=== PATIENT | female | born 1975 | race African-American/Black ===

== ENCOUNTER 2018-03-03 08:49 | Emergency (ER) | payer OTHER ==
[~2018-03-03] VITALS: Ht 165.1 cm; Wt 133.0 kg
[2018-03-03 08:52] VITALS: BP 180/83; PULSE 82; RESP 19; Ht 165.1 cm; Wt 133.0 kg
[2018-03-03] MEDS ORDERED: KETOROLAC 30 MG INJ IM STA (10:15)
[2018-03-03] MEDS ORDERED: DIAZEPAM 5 MG TAB PO ONE (10:30)
--- NOTE | 2018-03-03 10:32 | ERD ---
ER Documentation Chief Complaint Chief Complaint right hip amd back pain x 5 days HPI 42-year-old female presents emerged department complaining of lower back pain right hip pain that radiates down her back for the past 5 days. Patient rates the pain moderate in severity. She states that she had no injury and this never happened before. Denies saddle anesthesia, bladder or bowel incontinence. States that she is tried ibuprofen and Tylenol without any relief. Ibuprofen his last dose was last night ROS All systems reviewed and are negative except as per history of present illness. PMhx/Soc Medical and Surgical Hx: pt denies Surgical Hx Hx Cardiac Disorders: Yes (HTN) Hx Alcohol Use: No Hx Substance Use: No (quit 3 weeks ago marijuana) Hx Tobacco Use: No Smoking Status: Never smoker Physical Exam Vitals Vital Signs Date Temp Pulse Resp B/P (MAP) Pulse Ox O2 O2 Flow FiO2 Time Delivery Rate 03/03/18 98.7 82 19 180/83 100 08:52 (115) Physical Exam Const: No acute distress Head: Atraumatic Eyes: Normal Conjunctiva ENT: Normal External Ears, Nose and Mouth. Neck: Full range of motion. No meningismus. Resp: Clear to auscultation bilaterally Cardio: Regular rate and rhythm, no murmurs Abd: Soft, non tender, non distended. Normal bowel sounds Skin: No petechiae or rashes Back: Mild tenderness palpation in the sacral spine, tender palpation in the right lumbar region positive straight leg raise on the right Ext: No cyanosis, or edema Neur: Awake and alert Psych: Normal Mood and Affect Results 24 hrs Current Medications Medications Dose Sig/Edward Start Time Status Last (Trade) Ordered Route PRN Stop Time Admin Dose Reason Admin Diazepam 5 mg ONCE ONCE 03/03/18 (Valium) PO 10:30 03/03/18 10:31 Ketorolac 30 mg ONCE STAT 03/03/18 DC Tromethamine IM 10:15 (Toradol) 03/03/18 10:17 Procedures/MDM 42-year-old female presents with back pain that radiates down her leg for the past 5 days likely to be strain associated with sciatica. No evidence of any fracture dislocation. No evidence of cauda equina. Patient was given Toradol and Valium in the ED with some improvement. She is instructed to follow-up with her primary care physician, she states that she has an appointment next discussed to get a referral for physical therapy and possible MRI. Patient was given prescription for naproxen and Valium. I have given her return precautions she stable to be discharged home with return Departure Diagnosis: Primary Impression: Back pain Condition: Stable AILYN SANTOS PA-C Mar 03, 2018 10:32
[2018-03-03] MEDS ORDERED: NAPR-985 PO (11:13)
[2018-03-03] MEDS ORDERED: DIAZ5TAB PO (11:13)
== END 2018-03-03 11:28 | disposition home or self-care (01) ==
LOC: FTE 08:49
DX: M54.5 Low back pain (principal); I10 Essential (primary) hypertension
CPT/HCPCS: 72100; 81025; 96372; J1885; Z7502; Z7610

== ENCOUNTER 2018-03-10 15:30 | Emergency (ER) | payer OTHER ==
[~2018-03-10] VITALS: Ht 165.1 cm; Wt 136.8 kg
[~2018-03-10 15:30] MED LIST: DIAZ5TAB PO; NAPR-985 PO
[2018-03-10 15:35] VITALS: BP 172/104; PULSE 97; RESP 18; Ht 165.1 cm; Wt 136.8 kg
[2018-03-10] MEDS ORDERED: KETOROLAC 30 MG INJ IM STA (16:02)
--- NOTE | 2018-03-10 16:06 | ERD ---
ER Documentation Chief Complaint Chief Complaint back pain x 3 weeks HPI Patient is a 42-year-old female who is here with low back pain that radiates to her right hip. No bowel or bladder incontinence. No saddle anesthesia. No fever. No vomiting. No flank pain. No dysuria hematuria frequency. She is ambulatory. No trauma. ROS All systems reviewed and are negative except as per history of present illness. Medications Home Meds Active Scripts Hydrocodone/Acetaminophen ([place] 5-325 Tablet) 1 Each Tablet, 1 TAB PO Q6H PRN for PAIN, #15 TAB Prov:SRINIAVS FARMER PA-C 03/10/18 Cyclobenzaprine Hcl* (Cyclobenzaprine Hcl*) 10 Mg Tablet, 10 MG PO TID, #20 TAB Prov:SRINIVAS FARMER PA-C 03/10/18 Diazepam* (Valium*) 5 Mg Tablet, 2.5 MG PO Q8 PRN for MUSCLE SPASMS, #9 TAB Prov:AILYN SANTOS PA-C 03/03/18 Naproxen* (Naprosyn*) 500 Mg Tablet, 500 MG PO BID PRN for PAIN AND/OR INFLAMMATION, #30 TAB Prov:AILYN SANTOS PA-C 03/03/18 Allergies Allergies: Coded Allergies: No Known Allergy (Unverified , 03/10/18) PMhx/Soc Hx Cardiac Disorders: Yes (HTN) Hx Alcohol Use: No Hx Substance Use: No (quit 3 weeks ago marijuana) Hx Tobacco Use: No FmHx Family History: No diabetes Physical Exam Vitals Vital Signs Date Temp Pulse Resp B/P (MAP) Pulse Ox O2 O2 Flow FiO2 Time Delivery Rate 03/10/18 98.5 97 18 172/104 98 15:35 (126) Physical Exam Const: No acute distress Head: Atraumatic Eyes: Normal Conjunctiva ENT: Normal External Ears, Nose and Mouth. Neck: Full range of motion. No meningismus. Resp: Clear to auscultation bilaterally Cardio: Regular rate and rhythm, no murmurs Abd: Soft, non tender, non distended. Normal bowel sounds Back Exam: Compartments: Soft Motor: Normal flexion and extension of bilateral hip/knee/ankle/foot Sensation: Intact to light touch throughout Bones: No midline TTP Results 24 hrs Laboratory Tests Test 03/10/18 16:20 POC Beta HCG, Qualitative NEGATIVE Current Medications Medications Dose Sig/Edward Start Time Status Last (Trade) Ordered Route PRN Stop Time Admin Dose Reason Admin Ketorolac 30 mg ONCE STAT 03/10/18 DC 03/10/18 Tromethamine IM 16:02 16:26 (Toradol) 03/10/18 16:03 1 tab ONCE ONCE 03/10/18 03/10/18 Acetaminophen PO 16:30 16:26 / 03/10/18 16:31 Hydrocodone Bitart ([place] ()) Procedures/MDM Patient has back pain. The differential diagnosis includes but is not limited to muscle strain, ligament strain, contusion, arthritis, discogenetic disease, non-musculoskeletal, cauda equina syndrome, cord compression, abscess and others. Patient given Toradol and [place]. She has appointment with primary care. Patient counseled regarding my diagnostic impression and care plan. Prior to discharge all questions answered. Pt agrees with treatment plan and understands strict return precautions. Pt is instructed to follow up with primary care provider within 24-48 hours. Precautionary instructions provided including instructions to return to the ER if not improving or for any worsening or changing symptoms or concerns. Departure Diagnosis: Primary Impression: Back pain Condition: Stable SRINIVAS FARMER PA-C Mar 10, 2018 16:06
[2018-03-10] MEDS ORDERED: CYCL10TA7 PO (16:08)
[2018-03-10] MEDS ORDERED: HYDR-4011 PO (16:08)
[2018-03-10] MEDS ORDERED: HYDROCODONE/APAP (10/325) TAB PO ONE (16:30)
== END 2018-03-10 16:41 | disposition home or self-care (01) ==
LOC: FTE 15:30
DX: M54.5 Low back pain (principal); I10 Essential (primary) hypertension
CPT/HCPCS: 81025; 96372; J1885; Z7502; Z7610